=== PATIENT | male | born 1970 | race Caucasian/White ===

== ENCOUNTER 2018-08-22 15:36 | Emergency (ER) | payer SELFPAY ==
--- NOTE | 2018-08-22 15:51 | Emergency Department Record ---
History of Present Illness - General Chief complaint: Extremity Problem Stated complaint: RT SHOULDER PAIN Time Seen by Provider: 08/22/18 15:39 Source: Patient, Family Mode of Arrival: Ambulatory Limitations: No limitations - History of Present Illness Initial comments: 48 yo male presents with several days of right shoulder pain since wrestling. He has pain with lifting, certain positions and movements. He does have a prior history of rotator cuff injury. No weakness or numbness. No swelling. He denies prior surgery. 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 MD Complaint: Extremity pain, Joint pain Onset/Timin -: Days(s) Location: Right, Shoulder History of Same: Yes -: Yes Myalgia Radiation: Proximal, Distal Severity scale (1-10): 5 Quality: Aching Consistency: Constant Improves with: Immobilization Worsens with: Other Associated Symptoms: Denies other symptoms - Related Data Previous Rx's Medication Instructions Recorded Cyclobenzaprine HCl [Flexeril] 10 mg PO TID #20 tablet 08/22/18 Naproxen [Naprosyn] 500 mg PO Q12H #30 tab. 08/22/18 Allergies Allergy/AdvReac Type Severity Reaction Status Date / Time ketorolac [From Toradol] AdvReac VOMITING Verified 08/22/18 15:43 morphine AdvReac VOMITING Verified 08/22/18 15:43 Travel Screening - Travel/Exposure Within Last 30 Days Have you traveled within the last 30 days?: No Review of Systems Constitutional: Denies: Chills, Fever, Malaise, Weakness Eyes: Denies: Eye discharge ENT: Denies: Congestion, Throat pain Respiratory: Denies: Cough, Dyspnea Cardiovascular: Denies: Chest pain, Palpitations, Syncope Endocrine: Denies: Fatigue Gastrointestinal: Denies: Abdominal pain, Diarrhea, Nausea, Vomiting Genitourinary: Denies: Dysuria, Frequency, Hematuria Musculoskeletal: Reports: As per HPI, Arthralgia, Myalgia. Denies: Back pain, Joint swelling, Neck pain Skin: Denies: Bruising, Change in color, Rash Neurological: Denies: Headache, Numbness, Tingling, Weakness Psychiatric: Denies: Anxiety Hematological/Lymphatic: Denies: Blood Clots, Easy bleeding, Easy bruising Past Medical History - SOCIAL HISTORY Smoking Status: Current every day smoker Alcohol Use: None Drug Use: None - RESPIRATORY Hx Respiratory Disorders: No - CARDIOVASCULAR Hx Cardio Disorders: No - NEURO Hx Neuro Disorders: No - GI Hx GI Disorders: No - Hx Genitourinary Disorders: No - ENDOCRINE Hx Endocrine Disorders: No - MUSCULOSKELETAL Hx Musculoskeletal Disorders: Yes Comment:: previous torn right rotator cuff - PSYCH Hx Psych Problems: No - HEMATOLOGY/ONCOLOGY Hx Hematology/Oncology Disorders: No Family Medical History Any Significant Family History?: No Physical Exam - General General Appearance: Alert, Oriented x3, Cooperative, No acute distress Limitations: No limitations - Head Head exam: Atraumatic, Normal inspection - Eye Eye exam: Normal appearance, PERRL. negative: Conjunctival injection, Scleral icterus - ENT ENT exam: Normal exam, Mucous membranes moist Ear exam: Normal external inspection Nasal Exam: Normal inspection Mouth exam: Normal external inspection - Neck Neck exam: Normal inspection - Respiratory Respiratory exam: Normal lung sounds bilaterally. negative: Respiratory distress - Cardiovascular Cardiovascular Exam: Regular rate, Normal rhythm, Normal heart sounds Peripheral Pulses: 2+: Radial (R) - Extremities Extremities exam: Normal inspection, Normal capillary refill, Tenderness. negative: Full ROM Image of Full Body: 1 - tender anterior, pain with abduciton, pain with external rotation. Pain relief with internal rotation, retail sales manager and biceps intact - Back Back exam: Reports: Normal inspection, Full ROM. Denies: CVA tenderness (R), CVA tenderness (L), Tenderness - Neurological Neurological exam: Alert, Oriented X3. negative: Motor sensory deficit - Psychiatric Psychiatric exam: Normal affect, Normal mood - Skin Skin exam: Dry, Intact, Normal color, Warm Course Vital Signs 08/22/18 15:39 Temperature 97.8 F Pulse Rate 65 Respiratory 18 Rate Blood Pressure 126/76 Pulse Ox 99 - Reevaluation(s) Reevaluation #1: 08/22/18 16:23 The XR was reviewed No acute bone abnormality The clinical exam is possibly consistent with rotator cuff injury He may require further work up with MRI He will be referred to family medicine for follow up 08/22/18 16:30 We discussed the results and recommendation to call for a PCP so he can get further work up as needed for a possible cause of his pain 08/22/18 16:36 We discussed the sling is only for support and comfort and that he still will need to gently go through a ROM to prevent stiffness in the shoulder. Rx for Flexeril and Naprosyn. [facility] to the [facility] Disposition Disposition: Discharge Clinical Impression: Right shoulder strain Qualifiers: Encounter type: initial encounter Qualified Code(s): S46.911A - Strain of unspecified muscle, fascia and tendon at shoulder and upper arm level, right arm , initial encounter Disposition: Home, Self-Care Condition: (1) Good Instructions: Rotator Cuff Injury (ED) Additional Instructions: Call your doctor for the next available follow up appointment Return to the ER for a recheck if worse, any new concerns or questions Take the prescriptions provided as directed Review this ER visit and the tests performed with your family doctor Prescriptions: Cyclobenzaprine HCl [Flexeril] 10 mg PO TID #20 tablet Naproxen [Naprosyn] 500 mg PO Q12H #30 tab. Referrals: NII SALAZAR [MEDICAL DOCTOR] - Forms: Patient Portal Access Time of Disposition: 16:30 Quality - Quality Measures Quality Measures: N/A - Blood Pressure Screening Does Patient Have Any of the Following: No Blood Pressure Classification: Pre-Hypertensive BP Reading Systolic Measurement: 126 Diastolic Measurement: 76 Screening for High Blood Pressure: < Pre-Hypertensive BP, F/U Documented > [ G8950] Pre-Hypertensive Follow-up Interventions: Referral to alternative/primary care provider.
[2018-08-22] MEDS: IBUPROFEN 600 MG TABLET PO ONE (16:23)
== END 2018-08-22 16:37 | disposition home or self-care (01) ==
LOC: ER 15:36
DX: S46.911A Strain of unspecified muscle, fascia and tendon at shoulder and upper arm level, right arm, initial encounter (principal); Y93.72 Activity, wrestling; F17.210 Nicotine dependence, cigarettes, uncomplicated
CPT/HCPCS: 99283

== ENCOUNTER 2019-04-03 21:04 | Emergency (ER) | payer MEDICAID ==
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
[2019-04-03 21:37] LABS: ABSOLUTE NEUTROPHIL COUNT 7.11; BASO % 0.5 % (0-6); EOS % 4.9 % (0-6); GRAN % 65.2 % (47-80); HEMATOCRIT 39.2 % (42.0-52.0); MEAN CELL VOLUME 93.6 fl (81-97); MEAN CORPUSCULAR HGB CONC 33.2 g/dl (32-36); MEAN PLATELET VOLUME 8.2 fl (7.4-10.4); MONO % 10.4 % (0-9); PLATELET COUNT 488 K/uL (130-400); RED BLOOD COUNT 4.19 M/uL (4.40-5.70); RED CELL DISTRIBUTION WIDTH 11.8 % (11.5-14.5); WHITE BLOOD COUNT W/O DIFF 10.9 K/uL (4.2-12.2)
[2019-04-03 21:49] LABS: BLOOD UREA NITROGEN 13 mg/dL (6-20); CREATININE 1.1 mg/dL (0.7-1.2); EST GLOMERULAR FILTRATION RATE > 60 mL/min; TOTAL PROTEIN 5.9 g/dL (6.6-8.7)
[2019-04-03 21:50] LABS: URINE APPEARANCE CLEAR; URINE BILIRUBIN NEGATIVE (NEGATIVE); URINE BLOOD NEGATIVE (NEGATIVE); URINE COLOR YELLOW; URINE GLUCOSE (UA) NEGATIVE (NEGATIVE); URINE KETONE NEGATIVE (NEGATIVE); URINE LEUKOCYTE ESTERASE NEGATIVE (NEGATIVE); URINE NITRITE NEGATIVE (NEGATIVE); URINE PROTEIN NEGATIVE (NEGATIVE); URINE UROBILINOGEN 0.2 E.U./dL (0.20 - 1.00)
[2019-04-03 21:51] LABS: GLUCOSE,RANDOM 119 mg/dL (74-109)
[2019-04-03 21:54] LABS: ALB/GLOB RATIO 1.5 (1.1-1.8); ALBUMIN 3.5 g/dL (4.0-5.0); ALKALINE PHOSPHATASE 62 U/L (40-129); ALT/SGPT 21 U/L (<41); AST/SGOT 17 U/L (10.0-50.0)
[2019-04-03 22:17] LABS: ABO GROUP O; ANTIBODY SCREEN NEGATIVE (NEGATIVE); RH TYPE POSITIVE
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
[2019-04-03] MEDS ORDERED: METHYLNALTREXONE BROMIDE (RELISTOR) 12MG/0.6ML SYRINGE SQ ONE (22:58)
== END 2019-04-03 23:08 | disposition left against medical advice (07) ==
LOC: ER 21:04
DX: S27.2XXD Traumatic hemopneumothorax, subsequent encounter (principal); S22.5XXD Flail chest, subsequent encounter for fracture with routine healing; S36.114D Minor laceration of liver, subsequent encounter; M25.511 Pain in right shoulder; R10.31 Right lower quadrant pain; R07.89 Other chest pain; V29.9XXD Motorcycle rider (driver) (passenger) injured in unspecified traffic accident, subsequent encounter; F17.210 Nicotine dependence, cigarettes, uncomplicated
CPT/HCPCS: 99285 ×2; 96372; 85025; 80053; 81003; 86900; 86901; 86850; 71250; 74177; Q9967; J2212

== ENCOUNTER 2019-04-13 03:07 | Emergency (ER) | payer MEDICAID ==
[2019-04-13] MEDS ORDERED: HYDROCODONE/APAP 7.5/325MG TABLET PO ONE ×2 (03:33→04:44)
[2019-04-13] MEDS ORDERED: KETOROLAC 30 MG/ML VIAL IVP ONE (03:33)
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
[2019-04-13 03:44] LABS: HEMATOCRIT 40.6 % (42.0-52.0); HEMOGLOBIN 13.3 gm/dl (14.0-18.0); MEAN CELL VOLUME 92.7 fl (81-97); MEAN CORPUSCULAR HGB CONC 32.8 g/dl (32-36); MEAN PLATELET VOLUME 7.7 fl (7.4-10.4); PLATELET COUNT 754 K/uL (130-400); RED BLOOD COUNT 4.38 M/uL (4.40-5.70); WHITE BLOOD COUNT W/O DIFF 12.6 K/uL (4.2-12.2)
[2019-04-13] MEDS ORDERED: 0.9 % SODIUM CHLORIDE 1000ML 1,000 ML IV SCH (03:45)
[2019-04-13 03:47] LABS: MEAN CORPUSCULAR HEMOGLOBIN 30.3 pg (27-33)
[2019-04-13 03:53] LABS: BLOOD UREA NITROGEN 11 mg/dL (6-20)
[2019-04-13 03:54] LABS: BILIRUBIN,TOTAL < 0.20 mg/dL (0.2-1.0); EST GLOMERULAR FILTRATION RATE > 60 mL/min; TOTAL PROTEIN 5.4 g/dL (6.6-8.7)
[2019-04-13 03:56] LABS: GLUCOSE,RANDOM 104 mg/dL (74-109)
[2019-04-13 03:59] LABS: ALB/GLOB RATIO 1.3 (1.1-1.8); ALBUMIN 3.1 g/dL (4.0-5.0); ALKALINE PHOSPHATASE 81 U/L (40-129); ALT/SGPT 11 U/L (<41); AST/SGOT 11 U/L (10.0-50.0)
[2019-04-13 04:01] LABS: PLATELET ESTIMATE INCREASED (NORMAL)
--- NOTE | 2019-04-13 04:30 | CT SCAN REPORT ---
EXAMINATION: CT Chest without IV Contrast EXAM DATE: 04/13/2019 4:22 AM TECHNIQUE: Standard protocol CT images of the chest were performed without intravenous contrast. Lac k of intravenous contrast does limit assessment of the vascular structures and soft tissues. Coronal and sagittal images were reconstructed. INDICATION: [facility] [place]PARISON: None ENCOUNTER: Not applicable CHEST FINDINGS: Cardiovascular: The heart has a normal size. There is no pericardial effusion. The thoracic aorta an d main pulmonary artery have a normal caliber. Tracheobronchial Structures: There is no bronchial wall thickening or bronchiectasis. Lung Parenchyma: Linear scarring in the right anterior lung base Pleural Space: Large right pleural effusion Upper Abdomen: Included portions of the upper abdomen are unremarkable. Assessment of the soft tissues and vascular structures is overall limited on noncontrast imaging, IMPRESSION: Minimally displaced right posterior ninth and 10th rib fracture deformities. Large right pleural effu [place]. Linear scarring in the right anterior lower lobe Dictated by: Brianna Ray DO on 04/13/2019 4:27 AM. .
--- NOTE | 2019-04-13 04:33 | CT SCAN REPORT ---
EXAMINATION: CT Abdomen and Pelvis with IV Contrast EXAM DATE: 04/13/2019 4:22 AM TECHNIQUE: CT imaging of the abdomen and pelvis was performed with intravenous contrast. Coronal and sagittal images were reconstructed. IV Contrast: The amount and type of contrast are recorded in the medical record. INDICATION: [facility] COMPARISON: None ENCOUNTER: Not applicable CT ABDOMEN AND PELVIS FINDINGS: Lung Bases: Large right pleural effusion Hepatobiliary: The liver has a normal size with a smooth surface. The hepatic and portal veins appear patent. Pancreas: The pancreas is normal. Spleen: The spleen is not enlarged. Adrenals: The adrenal glands are normal. Gastrointestinal: The stomach and small bowel are normal with no obstruction or inflammation. The cristal endix is visualized and appears normal The large bowel is normal. Reproductive Organs: Unremarkable Lymphatic System: There is no adenopathy within the abdomen or pelvis. Vasculature: Normal caliber abdominal aorta. Peritoneum: No free fluid, free air, or inflammation IMPRESSION: Large right pleural effusion. No abdominal or pelvic visceral injury is appreciated. Subcutaneous hematoma right lower abdomen measuring 6.3 x 2.6 cm Dictated by: Brianna Ray DO on 04/13/2019 4:29 AM. .
== END 2019-04-13 04:58 | disposition left against medical advice (07) ==
LOC: ER 03:07
DX: S22.41XD Multiple fractures of ribs, right side, subsequent encounter for fracture with routine healing (principal); S27.2XXD Traumatic hemopneumothorax, subsequent encounter; J90 Pleural effusion, not elsewhere classified; F17.210 Nicotine dependence, cigarettes, uncomplicated; V29.9XXD Motorcycle rider (driver) (passenger) injured in unspecified traffic accident, subsequent encounter
CPT/HCPCS: 99284 ×2; 80053; 85027; 71250; 74177; Q9967; J7030